=== PATIENT | female | born 1935 | race African-American/Black ===

== ENCOUNTER 2020-12-22 21:35 | Inpatient (IN) | payer OTHER ==
[~2020-12-22] VITALS: Ht 162.6 cm; Wt 66.8 kg
[2020-12-22] MEDS ORDERED: SODIUM CHLORIDE 0.9% 1,000 ML IV ONE (22:15)
[2020-12-22] MEDS ORDERED: SODIUM CHLORIDE 0.9% 1000ML BAG (SEPSIS BOLUS) IV ONE (22:45)
[2020-12-22] MEDS ORDERED: VANCOMYCIN 1 G PREMIX 200 ML IV ONE (22:45)
[2020-12-22] MEDS ORDERED: PIPERACILLIN/TAZ 3.375G PREMIX 50 ML IV ONE (22:45)
[2020-12-22 23:07] LABS: BASOPHILS % 0.7 % (0.0-2.0); EOSINOPHILS % 0.6 % (0.0-5.0); HEMATOCRIT. 36.1 % (36.0-48.0); HEMOGLOBIN. 11.6 g/dL (12.0-16.0); LYMPHOCYTES % 7.4 % (20.0-50.0); MEAN CORPUSCULAR HEMOGLOBIN 25.7 pg (28.0-32.0); MEAN CORPUSCULAR VOLUME 80.2 fL (81.0-99.0); NEUTROPHILS % 80.3 % (40.0-76.0); PLATELET 402 x1000/uL (130-400); RED CELL DISTRIBUTION WIDTH 15.4 % (11.6-14.6)
[2020-12-23] VITALS (12 sets, daily range): BP systolic 114–180; BP diastolic 66–97
[2020-12-23 00:02] LABS: CHLORIDE 105 mEq/L (98-107)
[2020-12-23] MEDS ORDERED: ACETAMINOPHEN 325MG TABLET PO ONE ×2 (04:00)
[2020-12-23] MEDS ORDERED: HYDROCODONE/ACETAMINOPHEN 5/325MG TABLET PO PRN ×2 (07:00)
[2020-12-23] MEDS ORDERED: ONDANSETRON HCL 4MG/2ML INJ IV PRN (09:30)
[2020-12-23] MEDS ORDERED: ENOXAPARIN 40MG/0.4ML SYR SUBCUT SCH (09:30)
[2020-12-23] MEDS ORDERED: MAGNESIUM/ALUMINUM HYDROXIDE/SIMETHICONE 30ML UDC PO PRN (09:30)
[2020-12-23] MEDS ORDERED: DEXTROSE 50% WATER 50ML SYRINGE IV PRN ×2 (09:30)
[2020-12-23] MEDS: ENOXAPARIN 30MG/0.3ML SYR SUBCUT SCH (10:00)
[2020-12-23] MEDS: INSULIN LISPRO 100 UNITS/ML SUBCUT SCH ×4 (11:21→19:38)
[2020-12-23] MEDS: BLOOD SUGAR DIAGNOSTIC STRIP TEST SCH ×3 (11:21→19:31)
[2020-12-23] MEDS: CLONIDINE 0.1MG TABLET PO PRN (11:23)
[2020-12-23] MEDS ORDERED: AZITHROMYCIN 500 MG TABLET PO SCH (11:45)
[2020-12-23] MEDS ORDERED: CEFTRIAXONE 1 G PREMIX 50 ML IV SCH (11:45)
[2020-12-23] MEDS ORDERED: DEXTROSE 5% IV SCH (12:15)
[2020-12-23] MEDS ORDERED: WATER IV SCH (12:15)
[2020-12-23] MEDS ORDERED: NALOXONE HCL 0.4MG/ML VIAL IV PRN (12:15)
[2020-12-23] MEDS: IPRATROPIUM/ALBUTEROL 0.5-3(2.5)MG/3ML NEB HHN SCH ×2 (12:37→20:18)
[2020-12-23 13:04] LABS: BG BASE EXCESS 2.4 mmol/L (-2.0-2.0); BG DEOXYHEMOGLOBIN 3.3 % (0.0-5.0); BG FRACTION INSPIRED OXYGEN 36; BG HCO3 ACT 28.1 mmol/L (22.0-26.0); BG METHEMOGLOBIN 0.2 % (0.0-1.5); BG OXYGEN SATURATION 96.7 % (92.0-98.5); BG OXYHEMOGLOBIN 95.5 % (94.0-97.0); BG PCO2 48.4 mmHg (35.0-45.0); BG PH 7.382 (7.350-7.450); BG PO2 91.8 mmHg (75.0-100.0); BG SAMPLE SITE RIGHT BRACHIAL; BG TOTAL HEMOGLOBIN 11.1 g/dL (12.0-18.0); BG VENT MODE NASAL CANNULA
[2020-12-23] MEDS: CEFTRIAXONE 1,000 MG in DEXTROSE 5% WATER 50 ML IV SCH (13:32)
[2020-12-23 14:50] LABS: INR 1.1; PARTIAL THROMBOPLASTIN TIME 24.4 sec (23.4-31.0); PROTHROMBIN TIME 11.4 sec (9.6-11.0)
[2020-12-23 15:24] LABS: CLARITY URINE CLEAR (CLEAR); COLOR URINE YELLOW (YELLOW); KETONES URINE NEGATIVE (NEGATIVE); LEUKOCYTE ESTERASE URINE NEGATIVE (NEGATIVE); NITRITE URINE NEGATIVE (NEGATIVE); OCCULT BLOOD URINE NEGATIVE (NEGATIVE); PH URINE 5.5 (4.5-8.0); PROTEIN URINE TRACE (NEGATIVE); SPECIFIC GRAVITY URINE 1.022 (1.005-1.030)
[2020-12-23 15:37] LABS: *COCAINE SCREEN URINE NEGATIVE (NEGATIVE); CANNABINOID URINE SCREEN PRESUMTIVE POSITIVE (NEGATIVE); METHADONE URINE SCREEN NEGATIVE (NEGATIVE); OPIATES URINE SCREEN PRESUMTIVE POSITIVE (NEGATIVE); PHENCYCLIDINE URINE SCREEN NEGATIVE (NEGATIVE)
[2020-12-23 15:38] LABS: *AMPHETAMINES SCREEN URINE NEGATIVE (NEGATIVE); *BARBITURATES SCREEN URINE NEGATIVE (NEGATIVE); *BENZODIAZEPINES SCREEN URINE NEGATIVE (NEGATIVE)
[2020-12-23] MEDS ORDERED: SODIUM BICARBONATE 4% (2.4MEQ) 5ML VIAL IV ONE (15:38)
[2020-12-23] MEDS ORDERED: ATOR10TA69 PO (16:06)
[2020-12-23] MEDS ORDERED: PANT40TA51 PO (16:06)
[2020-12-23] MEDS ORDERED: HYDR-4134 PO (16:06)
[2020-12-23] MEDS ORDERED: DONE5TAB33 PO (16:06)
[2020-12-23] MEDS ORDERED: RISP0.5T65 PO (16:06)
[2020-12-23] MEDS ORDERED: ATOR40TA70 PO (16:06)
[2020-12-23] MEDS ORDERED: METF-415 PO (16:06)
[2020-12-23] MEDS ORDERED: AMLO5TAB88 PO (16:06)
[2020-12-23] MEDS ORDERED: HYDR-3735 PO (16:06)
[2020-12-23] MEDS ORDERED: LISI20TA31 PO (16:06)
[2020-12-23] MEDS ORDERED: METF-414 PO (16:06)
[2020-12-23] MEDS ORDERED: METO25TA6 PO (16:08)
[2020-12-23] MEDS: DONEPEZIL HCL 5MG TABLET PO SCH (18:06)
[2020-12-23] MEDS: RISPERIDONE 0.5MG TABLET PO SCH (18:06)
[2020-12-23] MEDS: LORAZEPAM 1MG TABLET PO PRN (20:25)
[2020-12-24] VITALS (18 sets, daily range): BP systolic 106–134; BP diastolic 39–87
[2020-12-24] MEDS: IPRATROPIUM/ALBUTEROL 0.5-3(2.5)MG/3ML NEB HHN SCH ×3 (02:17→20:15)
[2020-12-24] MEDS: BLOOD SUGAR DIAGNOSTIC STRIP TEST SCH ×4 (06:16→21:00)
[2020-12-24] MEDS: OMEPRAZOLE 20MG CAPSULE EXTENDED RELEASE PO SCH (06:50)
[2020-12-24] MEDS: INSULIN LISPRO 100 UNITS/ML SUBCUT SCH ×4 (07:20→22:02)
[2020-12-24 07:44] LABS: CHLORIDE 107 mEq/L (98-107)
[2020-12-24 07:49] LABS: HEMATOCRIT. 33.4 % (36.0-48.0); HEMOGLOBIN. 10.6 g/dL (12.0-16.0); MEAN CORPUSCULAR VOLUME 81.9 fL (81.0-99.0); MEAN PLATELET VOLUME 8.8 fl (7.4-10.4); PLATELET 345 x1000/uL (130-400); RED BLOOD CELL COUNT 4.08 mill/uL (4.2-5.4); RED CELL DISTRIBUTION WIDTH 15.2 % (11.6-14.6)
[2020-12-24 07:54] LABS: LDL CHOLESTEROL 49 mg/dL (5-100)
[2020-12-24 07:57] LABS: T4 FREE 1.24 ng/dL (0.76-1.46)
[2020-12-24 07:59] LABS: HDL CHOLESTEROL 42 mg/dL (40-59)
[2020-12-24] MEDS: DONEPEZIL HCL 5MG TABLET PO SCH (09:00)
[2020-12-24] MEDS: RISPERIDONE 0.5MG TABLET PO SCH (09:00)
[2020-12-24 09:19] LABS: BG BASE EXCESS 2.1 mmol/L (-2.0-2.0); BG CARBOXYHEMOGLOBIN 0.3 % (0.5-1.5); BG DEOXYHEMOGLOBIN 23.6 % (0.0-5.0); BG HCO3 ACT 25.4 mmol/L (22.0-26.0); BG METHEMOGLOBIN 0.2 % (0.0-1.5); BG OXYGEN SATURATION 76.3 % (92.0-98.5); BG OXYHEMOGLOBIN 75.9 % (94.0-97.0); BG PCO2 34.8 mmHg (35.0-45.0); BG PH 7.481 (7.350-7.450); BG PO2 39.3 mmHg (75.0-100.0); BG SAMPLE SITE RIGHT RADIAL; BG TOTAL HEMOGLOBIN 10.7 g/dL (12.0-18.0); BG VENT MODE ROOM AIR
[2020-12-24] MEDS: AZITHROMYCIN 250 MG TABLET PO SCH (10:13)
[2020-12-24 10:55] LABS: PLATELET ESTIMATE NORMAL
[2020-12-24 11:14] LABS: BG BASE EXCESS 3.3 mmol/L (-2.0-2.0); BG CARBOXYHEMOGLOBIN 0.2 % (0.5-1.5); BG DEOXYHEMOGLOBIN 13.6 % (0.0-5.0); BG HCO3 ACT 27.8 mmol/L (22.0-26.0); BG METHEMOGLOBIN 0.2 % (0.0-1.5); BG OXYGEN SATURATION 86.3 % (92.0-98.5); BG PCO2 42.1 mmHg (35.0-45.0); BG PH 7.438 (7.350-7.450); BG SAMPLE SITE RIGHT RADIAL; BG TOTAL HEMOGLOBIN 10.4 g/dL (12.0-18.0); BG VENT MODE NASAL CANNULA
[2020-12-24] MEDS ORDERED: FUROSEMIDE 40MG/4ML VIAL IVP SCH (12:00)
[2020-12-24] MEDS: CEFTRIAXONE 1,000 MG in DEXTROSE 5% WATER 50 ML IV SCH (12:38)
[2020-12-24] MEDS: METHYLPREDNISOLONE SOD SUCC 40 MG/ML VIAL IV SCH ×2 (12:50→21:53)
[2020-12-24] MEDS ORDERED: IOHEXOL-350 100 ML BOTTLE ONE (14:29)
[2020-12-24] MEDS: FUROSEMIDE 40MG/4ML VIAL IVP SCH (18:58)
[2020-12-25] VITALS (12 sets, daily range): BP systolic 99–146; BP diastolic 62–92
[2020-12-25] MEDS: ACETAMINOPHEN 325MG TABLET PO PRN ×2 (05:43→13:43)
[2020-12-25] MEDS: METHYLPREDNISOLONE SOD SUCC 40 MG/ML VIAL IV SCH ×2 (06:16→17:32)
[2020-12-25] MEDS: OMEPRAZOLE 20MG CAPSULE EXTENDED RELEASE PO SCH (06:16)
[2020-12-25 06:22] LABS: HEMATOCRIT. 35.3 % (36.0-48.0); HEMOGLOBIN. 11.3 g/dL (12.0-16.0); MEAN CORPUSCULAR HEMOGLOBIN 26.1 pg (28.0-32.0); MEAN CORPUSCULAR VOLUME 81.3 fL (81.0-99.0); MEAN PLATELET VOLUME 8.8 fl (7.4-10.4); PLATELET 409 x1000/uL (130-400); RED BLOOD CELL COUNT 4.35 mill/uL (4.2-5.4)
[2020-12-25] MEDS: BLOOD SUGAR DIAGNOSTIC STRIP TEST SCH ×4 (06:50→21:32)
[2020-12-25] MEDS: INSULIN LISPRO 100 UNITS/ML SUBCUT SCH ×5 (08:09→21:35)
[2020-12-25] MEDS: DONEPEZIL HCL 5MG TABLET PO SCH (08:17)
[2020-12-25] MEDS: RISPERIDONE 0.5MG TABLET PO SCH (08:17)
[2020-12-25] MEDS: FUROSEMIDE 40MG/4ML VIAL IVP SCH ×2 (08:17→17:32)
[2020-12-25] MEDS: AZITHROMYCIN 250 MG TABLET PO SCH (08:17)
[2020-12-25] MEDS: ENOXAPARIN 30MG/0.3ML SYR SUBCUT SCH (08:18)
[2020-12-25] MEDS: IPRATROPIUM/ALBUTEROL 0.5-3(2.5)MG/3ML NEB HHN SCH ×3 (08:43→21:25)
[2020-12-25 09:42] LABS: CHLORIDE 100 mEq/L (98-107)
[2020-12-25 09:47] LABS: PHOSPHORUS 3.4 mg/dL (2.5-4.9)
[2020-12-25] MEDS ORDERED: DEXTROSE 50% WATER 50ML SYRINGE IV PRN (11:30)
[2020-12-25] MEDS ORDERED: BLOOD SUGAR DIAGNOSTIC STRIP TEST SCH (11:50)
[2020-12-25] MEDS ORDERED: LORAZEPAM 2MG/ML CPJ IV PRN (13:00)
[2020-12-25] MEDS ORDERED: INSULIN LISPRO 100 UNITS/ML SUBCUT NR (13:00)
[2020-12-25] MEDS ORDERED: MAGNESIUM 1 G PREMIX 100 ML IV SCH (13:00)
[2020-12-25 13:01] LABS: PLATELET ESTIMATE INCREASED
[2020-12-25] MEDS: LORAZEPAM 1MG TABLET PO PRN (13:59)
[2020-12-25] MEDS: CEFTRIAXONE 1,000 MG in DEXTROSE 5% WATER 50 ML IV SCH (14:00)
[2020-12-26] VITALS (12 sets, daily range): BP systolic 128–160; BP diastolic 67–97
[2020-12-26] MEDS: IPRATROPIUM/ALBUTEROL 0.5-3(2.5)MG/3ML NEB HHN SCH ×3 (01:24→20:23)
[2020-12-26] MEDS: OMEPRAZOLE 20MG CAPSULE EXTENDED RELEASE PO SCH (06:07)
[2020-12-26] MEDS: BLOOD SUGAR DIAGNOSTIC STRIP TEST SCH ×4 (06:49→21:20)
[2020-12-26] MEDS: METHYLPREDNISOLONE SOD SUCC 40 MG/ML VIAL IV SCH ×2 (08:25→16:54)
[2020-12-26] MEDS: DONEPEZIL HCL 5MG TABLET PO SCH (08:26)
[2020-12-26] MEDS: RISPERIDONE 0.5MG TABLET PO SCH (08:26)
[2020-12-26] MEDS: FUROSEMIDE 40MG/4ML VIAL IVP SCH ×2 (08:26→16:54)
[2020-12-26] MEDS: INSULIN LISPRO 100 UNITS/ML SUBCUT SCH ×4 (08:26→21:21)
[2020-12-26] MEDS: AZITHROMYCIN 250 MG TABLET PO SCH (08:26)
[2020-12-26] MEDS: ENOXAPARIN 30MG/0.3ML SYR SUBCUT SCH (08:27)
[2020-12-26 08:47] LABS: HEMATOCRIT. 33.9 % (36.0-48.0); HEMOGLOBIN. 10.8 g/dL (12.0-16.0); MEAN CORPUSCULAR HEMOGLOBIN 25.8 pg (28.0-32.0); MEAN CORPUSCULAR VOLUME 81.3 fL (81.0-99.0); MEAN PLATELET VOLUME 9.2 fl (7.4-10.4); PLATELET 405 x1000/uL (130-400); RED BLOOD CELL COUNT 4.17 mill/uL (4.2-5.4); RED CELL DISTRIBUTION WIDTH 15.1 % (11.6-14.6)
[2020-12-26 09:00] LABS: CHLORIDE 102 mEq/L (98-107)
[2020-12-26] MEDS: CEFTRIAXONE 1,000 MG in DEXTROSE 5% WATER 50 ML IV SCH (13:05)
[2020-12-26 14:07] LABS: PLATELET ESTIMATE SLIGHTLY INCREASED
[2020-12-26] MEDS: CLONIDINE 0.1MG TABLET PO PRN (16:54)
[2020-12-27 00:18] VITALS: BP 176/92
[2020-12-27] MEDS: CLONIDINE 0.1MG TABLET PO PRN (00:30)
[2020-12-27 02:16] VITALS: BP 150/49
[2020-12-27] MEDS: IPRATROPIUM/ALBUTEROL 0.5-3(2.5)MG/3ML NEB HHN SCH (02:29)
[2020-12-27] MEDS ORDERED: METF-415 PO (05:40)
[2020-12-27 05:41] VITALS: BP 142/80
[2020-12-27] MEDS ORDERED: RISP0.5T65 PO (05:42)
[2020-12-27] MEDS ORDERED: ATOR10TA69 PO (05:44)
[2020-12-27] MEDS ORDERED: AMLO5TAB88 PO (05:44)
[2020-12-27] MEDS ORDERED: DONE5TAB33 PO (05:45)
[2020-12-27] MEDS ORDERED: METO25TA6 PO (05:52)
[2020-12-27] MEDS: LORAZEPAM 1MG TABLET PO PRN (06:29)
[2020-12-27 06:46] VITALS: BP 142/80
[2020-12-27] MEDS ORDERED: FAMOTIDINE 20MG TABLET PO SCH (06:50)
[2020-12-27] MEDS ORDERED: METFORMIN HCL 850MG TABLET PO SCH (08:30)
[2020-12-27] MEDS ORDERED: METOPROLOL TARTRATE 25MG TABLET PO SCH (09:00)
[2020-12-27] MEDS ORDERED: AMLODIPINE 5MG TABLET PO SCH (09:00)
[2020-12-27] MEDS ORDERED: DONEPEZIL HCL 5MG TABLET PO SCH (09:00)
[2020-12-27] MEDS ORDERED: RISPERIDONE 0.5MG TABLET PO SCH (09:00)
[2020-12-27] MEDS ORDERED: ATORVASTATIN CALCIUM 10MG TABLET PO SCH (17:00)
== END 2020-12-27 07:30 | disposition home health service (06) | DRG 871 ==
LOC: ER 21:35 → MICUSO 23:30 → 3WST 12-23 12:02
PROVIDERS: ADMIT Internal Medicine; ATTEND Internal Medicine
PROC: 0W993ZZ Drainage of Right Pleural Cavity, Percutaneous Approach (ICD-10-PCS; principal; 2020-12-23)
PROC: 5A09357 Assistance with Respiratory Ventilation, Less than 24 Consecutive Hours, Continuous Positive Airway Pressure (ICD-10-PCS; 2020-12-24)
PROC: 5A09357 Assistance with Respiratory Ventilation, Less than 24 Consecutive Hours, Continuous Positive Airway Pressure (ICD-10-PCS; 2020-12-25)
DX: A41.9 Sepsis, unspecified organism (principal); J18.9 Pneumonia, unspecified organism; J96.21 Acute and chronic respiratory failure with hypoxia; I50.33 Acute on chronic diastolic (congestive) heart failure; J45.901 Unspecified asthma with (acute) exacerbation; E44.0 Moderate protein-calorie malnutrition; G93.40 Encephalopathy, unspecified; J91.8 Pleural effusion in other conditions classified elsewhere; I11.0 Hypertensive heart disease with heart failure; D72.829 Elevated white blood cell count, unspecified; E11.65 Type 2 diabetes mellitus with hyperglycemia; T38.0X5A Adverse effect of glucocorticoids and synthetic analogues, initial encounter; Y92.239 Unspecified place in hospital as the place of occurrence of the external cause; E83.42 Hypomagnesemia; Z20.822 Contact with and (suspected) exposure to COVID-19; F03.90 Unspecified dementia, unspecified severity, without behavioral disturbance, psychotic disturbance, mood disturbance, and anxiety; E78.5 Hyperlipidemia, unspecified; F17.210 Nicotine dependence, cigarettes, uncomplicated; D64.9 Anemia, unspecified; Z68.25 Body mass index [BMI] 25.0-25.9, adult
CPT/HCPCS: 32555; 36415; 36600; 71045; 71275; 80048; 80053; 80061; 80305; 81003; 82040; 82375; 82805; 82962; 83036; 83605; 83615; 83735; 83880; 84100; 84145; 84439; 84443; 84484; 85025; 87426; 88108; 88312; 93005; 93306; 93970; 94640; 94660; 97162; 99291; J0696; J1650; J1815; J1940; J2310; J2543; J2920; J3370; J3475; J3490; J7030; J7060; Q9967

== ENCOUNTER 2020-12-28 18:07 | Inpatient (IN) | payer OTHER ==
[~2020-12-28] VITALS: Ht 154.9 cm; Wt 63.5 kg
[~2020-12-28 18:07] MED LIST: AMLO5TAB88 PO; ATOR10TA69 PO; ATOR40TA70 PO; DONE5TAB33 PO; HYDR-3735 PO; HYDR-4134 PO; LISI20TA31 PO; METF-414 PO; METF-415 PO; METO25TA6 PO; PANT40TA51 PO; RISP0.5T65 PO
[2020-12-28 21:29] LABS: BASOPHILS % 0.3 % (0.0-2.0); EOSINOPHILS % 0.5 % (0.0-5.0); HEMATOCRIT. 35.5 % (36.0-48.0); HEMOGLOBIN. 11.2 g/dL (12.0-16.0); LYMPHOCYTES % 15.4 % (20.0-50.0); MEAN CORPUSCULAR HEMOGLOBIN 25.7 pg (28.0-32.0); MEAN PLATELET VOLUME 8.2 fl (7.4-10.4); MONOCYTES % 10.6 % (2.0-8.0); NEUTROPHILS % 73.2 % (40.0-76.0); PLATELET 446 x1000/uL (130-400); RED BLOOD CELL COUNT 4.38 mill/uL (4.2-5.4); RED CELL DISTRIBUTION WIDTH 14.9 % (11.6-14.6)
[2020-12-28 21:35] LABS: CHLORIDE 103 mEq/L (98-107)
[2020-12-29 03:15] LABS: CLARITY URINE CLEAR (CLEAR); COLOR URINE YELLOW (YELLOW); KETONES URINE NEGATIVE (NEGATIVE); LEUKOCYTE ESTERASE URINE NEGATIVE (NEGATIVE); NITRITE URINE NEGATIVE (NEGATIVE); OCCULT BLOOD URINE NEGATIVE (NEGATIVE); PH URINE 7.5 (4.5-8.0); PROTEIN URINE NEGATIVE (NEGATIVE); SPECIFIC GRAVITY URINE 1.011 (1.005-1.030)
[2020-12-29] MEDS ORDERED: DIPHENHYDRAMINE 50MG/ML VIAL IV PRN (08:30)
[2020-12-29] MEDS ORDERED: CLONIDINE 0.1MG TABLET PO PRN (08:30)
[2020-12-29] MEDS ORDERED: ENOXAPARIN 40MG/0.4ML SYR SUBCUT SCH (08:30)
[2020-12-29] MEDS ORDERED: DOCUSATE SODIUM 100MG CAPSULE PO PRN (08:30)
[2020-12-29] MEDS ORDERED: HYDRALAZINE 20MG/ML VIAL IV PRN (08:30)
[2020-12-29] MEDS ORDERED: HYDROCODONE/ACETAMINOPHEN 5/325MG TABLET PO PRN (08:30)
[2020-12-29] MEDS ORDERED: GUAIFENESIN 200MG/10ML SUGAR FREE UDC PO PRN (08:30)
[2020-12-29] MEDS ORDERED: ONDANSETRON HCL 4MG/2ML INJ IV PRN (08:30)
[2020-12-29] MEDS ORDERED: ACETAMINOPHEN 325MG TABLET PO PRN (08:30)
[2020-12-29] MEDS ORDERED: LORAZEPAM 2MG/ML CPJ IV PRN (08:30)
[2020-12-29] MEDS ORDERED: MORPHINE SULFATE 2 MG/ML CPJ (NOT FOR IM USE) IV PRN (08:30)
[2020-12-29] MEDS ORDERED: MAGNESIUM/ALUMINUM HYDROXIDE/SIMETHICONE 30ML UDC PO PRN (08:30)
[2020-12-29] MEDS ORDERED: IPRATROPIUM/ALBUTEROL 0.5-3(2.5)MG/3ML NEB HHN PRN (08:30)
[2020-12-29] MEDS ORDERED: DEXTROSE 50% WATER 50ML SYRINGE IV PRN (08:45)
[2020-12-29] MEDS ORDERED: NALOXONE HCL 0.4MG/ML VIAL IV PRN (08:45)
[2020-12-29 09:00] VITALS: BP 137/83
[2020-12-29 11:00] VITALS: BP 137/72
[2020-12-29] MEDS ORDERED: *PATIENT'S OWN MEDICATION STORAGE XX SCH (11:15)
[2020-12-29 11:18] VITALS: BP 137/72
[2020-12-29 12:00] VITALS: BP 130/77
[2020-12-29] MEDS ORDERED: INSULIN LISPRO 100 UNITS/ML SUBCUT SCH (12:00)
[2020-12-29] MEDS: BLOOD SUGAR DIAGNOSTIC STRIP TEST SCH ×3 (12:09→21:08)
[2020-12-29] MEDS: IPRATROPIUM/ALBUTEROL 0.5-3(2.5)MG/3ML NEB HHN SCH ×2 (14:01→18:00)
[2020-12-29] MEDS: SODIUM CHLORIDE 0.9% INJ 3ML FLUSH IVF SCH ×2 (14:28→21:09)
[2020-12-29] MEDS: PIPERACILLIN/TAZOBACTAM 3.375 G in DEXTROSE 5% WATER 50 ML IV SCH ×2 (14:28→21:08)
[2020-12-29 16:00] VITALS: BP 144/84
[2020-12-29 16:56] LABS: BG BASE EXCESS 6.5 mmol/L (-2.0-2.0); BG CARBOXYHEMOGLOBIN 0.3 % (0.5-1.5); BG DEOXYHEMOGLOBIN 7.9 % (0.0-5.0); BG FRACTION INSPIRED OXYGEN 28; BG METHEMOGLOBIN 0.3 % (0.0-1.5); BG OXYGEN SATURATION 92.1 % (92.0-98.5); BG OXYHEMOGLOBIN 91.5 % (94.0-97.0); BG PCO2 44.1 mmHg (35.0-45.0); BG PH 7.465 (7.350-7.450); BG PO2 61.8 mmHg (75.0-100.0); BG SAMPLE SITE RIGHT BRACHIAL; BG TOTAL HEMOGLOBIN 11.1 g/dL (12.0-18.0); BG VENT MODE NASAL CANNULA
[2020-12-29] MEDS ORDERED: FUROSEMIDE 40MG/4ML VIAL IVP SCH (17:45)
[2020-12-29] MEDS: METHYLPREDNISOLONE SOD SUCC 40 MG/ML VIAL IV SCH (18:31)
[2020-12-29] MEDS: INSULIN LISPRO 100 UNITS/ML SUBCUT SCH ×2 (18:31→21:09)
[2020-12-29 20:00] VITALS: BP 148/65
[2020-12-29 22:03] LABS: CREATINE KINASE 36 IU/L (26-192)
[2020-12-29 22:04] LABS: CREATINE KINASE MB FRACTION 1.5 ng/mL (0.5-3.6)
[2020-12-30] VITALS: BP 131/80
[2020-12-30] MEDS: PIPERACILLIN/TAZOBACTAM 3.375 G in DEXTROSE 5% WATER 50 ML IV SCH ×3 (05:42→23:08)
[2020-12-30] MEDS: SODIUM CHLORIDE 0.9% INJ 3ML FLUSH IVF SCH ×3 (05:42→23:08)
[2020-12-30] MEDS: BLOOD SUGAR DIAGNOSTIC STRIP TEST SCH ×4 (07:27→21:00)
[2020-12-30 08:00] VITALS: BP 148/75
[2020-12-30 08:41] LABS: HEMATOCRIT. 36.6 % (36.0-48.0); HEMOGLOBIN. 11.7 g/dL (12.0-16.0); MEAN CORPUSCULAR HEMOGLOBIN 25.8 pg (28.0-32.0); MEAN CORPUSCULAR VOLUME 80.3 fL (81.0-99.0); MEAN PLATELET VOLUME 8.6 fl (7.4-10.4); PLATELET 453 x1000/uL (130-400); RED BLOOD CELL COUNT 4.55 mill/uL (4.2-5.4); RED CELL DISTRIBUTION WIDTH 15.1 % (11.6-14.6)
[2020-12-30 09:14] LABS: CHLORIDE 98 mEq/L (98-107)
[2020-12-30] MEDS: IPRATROPIUM/ALBUTEROL 0.5-3(2.5)MG/3ML NEB HHN SCH ×4 (09:14→22:00)
[2020-12-30 09:26] LABS: CREATINE KINASE MB FRACTION < 1.0 ng/mL (0.5-3.6)
[2020-12-30 09:27] LABS: CREATINE KINASE 27 IU/L (26-192)
[2020-12-30] MEDS: METHYLPREDNISOLONE SOD SUCC 40 MG/ML VIAL IV SCH ×2 (09:53→17:00)
[2020-12-30] MEDS: INSULIN LISPRO 100 UNITS/ML SUBCUT SCH ×4 (09:53→21:00)
[2020-12-30] MEDS: FUROSEMIDE 40MG/4ML VIAL IVP SCH ×2 (10:11→17:15)
[2020-12-30] MEDS ORDERED: INSULIN GLARGINE UD 100 UNITS/ML SYR SUBCUT NR ×2 (11:30→14:30)
[2020-12-30 12:00] VITALS: BP 145/76
[2020-12-30 16:00] VITALS: BP 133/77
[2020-12-30] MEDS ORDERED: INSULIN LISPRO 100 UNITS/ML SUBCUT NR (16:10)
[2020-12-30 20:00] VITALS: BP 149/97
[2020-12-30] MEDS ORDERED: INSULIN GLARGINE UD 100 UNITS/ML SYR SUBCUT SCH (22:00)
[2020-12-30] MEDS: INSULIN GLARGINE UD 100 UNITS/ML SYR SUBCUT SCH (22:00)
[2020-12-31] VITALS: BP 143/63
[2020-12-31] MEDS: IPRATROPIUM/ALBUTEROL 0.5-3(2.5)MG/3ML NEB HHN SCH ×4 (03:36→20:35)
[2020-12-31 04:00] VITALS: BP 133/80
[2020-12-31] MEDS: PIPERACILLIN/TAZOBACTAM 3.375 G in DEXTROSE 5% WATER 50 ML IV SCH ×3 (06:29→21:43)
[2020-12-31] MEDS: FUROSEMIDE 40MG/4ML VIAL IVP SCH ×2 (06:29→17:29)
[2020-12-31] MEDS: SODIUM CHLORIDE 0.9% INJ 3ML FLUSH IVF SCH ×3 (06:29→21:44)
[2020-12-31] MEDS: BLOOD SUGAR DIAGNOSTIC STRIP TEST SCH ×4 (06:30→21:38)
[2020-12-31 07:20] LABS: BASOPHILS % 0.1 % (0.0-2.0); EOSINOPHILS % 0.5 % (0.0-5.0); HEMATOCRIT. 34.3 % (36.0-48.0); HEMOGLOBIN. 11.2 g/dL (12.0-16.0); LYMPHOCYTES % 14.1 % (20.0-50.0); MEAN CORPUSCULAR HEMOGLOBIN 25.8 pg (28.0-32.0); MEAN CORPUSCULAR VOLUME 79.3 fL (81.0-99.0); MEAN PLATELET VOLUME 8.4 fl (7.4-10.4); MONOCYTES % 6.1 % (2.0-8.0); NEUTROPHILS % 79.2 % (40.0-76.0); PLATELET 497 x1000/uL (130-400); RED BLOOD CELL COUNT 4.32 mill/uL (4.2-5.4); RED CELL DISTRIBUTION WIDTH 14.9 % (11.6-14.6)
[2020-12-31] MEDS: INSULIN LISPRO 100 UNITS/ML SUBCUT SCH ×4 (07:50→21:47)
[2020-12-31 07:52] LABS: CHLORIDE 99 mEq/L (98-107)
[2020-12-31 08:51] VITALS: BP 150/75
[2020-12-31] MEDS: METHYLPREDNISOLONE SOD SUCC 40 MG/ML VIAL IV SCH ×2 (09:09→17:29)
[2020-12-31] MEDS ORDERED: POTASSIUM CHLORIDE 20MEQ TABLET SR PO SCH (12:15)
[2020-12-31 12:17] VITALS: BP 146/78
[2020-12-31] MEDS: INSULIN GLARGINE UD 100 UNITS/ML SYR SUBCUT SCH ×2 (13:45→22:22)
[2020-12-31 14:21] LABS: PLATELET ESTIMATE INCREASED
[2020-12-31 16:16] VITALS: BP 168/90
[2020-12-31] MEDS ORDERED: ALPRAZOLAM 0.25 MG TABLET PO PRN (17:15)
[2020-12-31 20:00] VITALS: BP 152/95
[2021-01-01] VITALS (7 sets, daily range): BP systolic 127–194; BP diastolic 64–101
[2021-01-01] MEDS: IPRATROPIUM/ALBUTEROL 0.5-3(2.5)MG/3ML NEB HHN SCH ×4 (01:30→19:41)
[2021-01-01] MEDS: FUROSEMIDE 40MG/4ML VIAL IVP SCH ×2 (06:15→18:05)
[2021-01-01] MEDS: PIPERACILLIN/TAZOBACTAM 3.375 G in DEXTROSE 5% WATER 50 ML IV SCH ×3 (06:15→22:01)
[2021-01-01] MEDS: SODIUM CHLORIDE 0.9% INJ 3ML FLUSH IVF SCH ×3 (06:15→22:02)
[2021-01-01] MEDS: BLOOD SUGAR DIAGNOSTIC STRIP TEST SCH ×4 (06:28→21:00)
[2021-01-01 06:39] LABS: BASOPHILS % 0.1 % (0.0-2.0); HEMATOCRIT. 33.1 % (36.0-48.0); HEMOGLOBIN. 10.9 g/dL (12.0-16.0); MEAN CORPUSCULAR HEMOGLOBIN 26.1 pg (28.0-32.0); MEAN CORPUSCULAR VOLUME 79.7 fL (81.0-99.0); MEAN PLATELET VOLUME 8.5 fl (7.4-10.4); MONOCYTES % 6.4 % (2.0-8.0); NEUTROPHILS % 85.5 % (40.0-76.0); PLATELET 507 x1000/uL (130-400); RED BLOOD CELL COUNT 4.15 mill/uL (4.2-5.4); RED CELL DISTRIBUTION WIDTH 14.4 % (11.6-14.6)
[2021-01-01 07:22] LABS: CHLORIDE 95 mEq/L (98-107)
[2021-01-01] MEDS: METHYLPREDNISOLONE SOD SUCC 40 MG/ML VIAL IV SCH ×2 (09:00→17:00)
[2021-01-01] MEDS: POTASSIUM CHLORIDE 20MEQ TABLET SR PO SCH (09:00)
[2021-01-01] MEDS: INSULIN GLARGINE UD 100 UNITS/ML SYR SUBCUT SCH ×2 (09:33→22:00)
[2021-01-01] MEDS: INSULIN LISPRO 100 UNITS/ML SUBCUT SCH ×4 (09:34→21:59)
[2021-01-01] MEDS ORDERED: DOCUSATE SODIUM 100MG CAPSULE PO SCH (21:00)
[2021-01-02] VITALS (7 sets, daily range): BP systolic 106–156; BP diastolic 53–93
[2021-01-02] MEDS: IPRATROPIUM/ALBUTEROL 0.5-3(2.5)MG/3ML NEB HHN SCH ×4 (01:23→17:19)
[2021-01-02] MEDS: BLOOD SUGAR DIAGNOSTIC STRIP TEST SCH ×3 (06:17→17:35)
[2021-01-02] MEDS: FUROSEMIDE 40MG/4ML VIAL IVP SCH ×2 (06:17→18:01)
[2021-01-02] MEDS: PIPERACILLIN/TAZOBACTAM 3.375 G in DEXTROSE 5% WATER 50 ML IV SCH ×2 (06:17→14:00)
[2021-01-02] MEDS: SODIUM CHLORIDE 0.9% INJ 3ML FLUSH IVF SCH ×2 (06:18→14:00)
[2021-01-02 06:28] LABS: BASOPHILS % 0.1 % (0.0-2.0); EOSINOPHILS % 0.1 % (0.0-5.0); HEMATOCRIT. 35.5 % (36.0-48.0); HEMOGLOBIN. 11.5 g/dL (12.0-16.0); LYMPHOCYTES % 7.2 % (20.0-50.0); MEAN CORPUSCULAR HEMOGLOBIN 25.9 pg (28.0-32.0); MEAN CORPUSCULAR VOLUME 80.1 fL (81.0-99.0); MEAN PLATELET VOLUME 8.8 fl (7.4-10.4); NEUTROPHILS % 86.6 % (40.0-76.0); PLATELET 526 x1000/uL (130-400); RED BLOOD CELL COUNT 4.43 mill/uL (4.2-5.4); RED CELL DISTRIBUTION WIDTH 15.1 % (11.6-14.6)
[2021-01-02 06:31] LABS: INR 1.1; PROTHROMBIN TIME 11.8 sec (9.6-11.0)
[2021-01-02 06:41] LABS: CHLORIDE 94 mEq/L (98-107)
[2021-01-02] MEDS: INSULIN LISPRO 100 UNITS/ML SUBCUT SCH ×3 (09:51→18:02)
[2021-01-02] MEDS: METHYLPREDNISOLONE SOD SUCC 40 MG/ML VIAL IV SCH ×2 (09:52→18:01)
[2021-01-02] MEDS: POTASSIUM CHLORIDE 20MEQ TABLET SR PO SCH (09:52)
[2021-01-02] MEDS: INSULIN GLARGINE UD 100 UNITS/ML SYR SUBCUT SCH (10:16)
[2021-01-02 10:39] LABS: BG BASE EXCESS 6.3 mmol/L (-2.0-2.0); BG CARBOXYHEMOGLOBIN 0.5 % (0.5-1.5); BG DEOXYHEMOGLOBIN 10.9 % (0.0-5.0); BG FRACTION INSPIRED OXYGEN 21; BG HCO3 ACT 30.2 mmol/L (22.0-26.0); BG METHEMOGLOBIN 0.2 % (0.0-1.5); BG OXYHEMOGLOBIN 88.4 % (94.0-97.0); BG PCO2 40.7 mmHg (35.0-45.0); BG PH 7.488 (7.350-7.450); BG PO2 54.7 mmHg (75.0-100.0); BG SAMPLE SITE RIGHT BRACHIAL; BG TOTAL HEMOGLOBIN 12.6 g/dL (12.0-18.0); BG VENT MODE ROOM AIR
[2021-01-02] MEDS ORDERED: AMOX1TAB15 MT (11:43)
[2021-01-02] MEDS ORDERED: FLUT1AER INH (11:43)
[2021-01-02] MEDS ORDERED: ALBU90AE INH (11:43)
[2021-01-02] MEDS ORDERED: PRED10TA PO (11:43)
== END 2021-01-02 20:40 | disposition home or self-care (01) | DRG 193 ==
LOC: ER 18:07 → EDBEDREQ 12-29 01:15 → MICUSO 12-29 06:38 → 6WST 12-29 10:35
PROVIDERS: ADMIT Internal Medicine; ATTEND Internal Medicine
DX: J18.9 Pneumonia, unspecified organism (principal); J96.01 Acute respiratory failure with hypoxia; I50.33 Acute on chronic diastolic (congestive) heart failure; J44.1 Chronic obstructive pulmonary disease with (acute) exacerbation; E44.0 Moderate protein-calorie malnutrition; G93.40 Encephalopathy, unspecified; J44.0 Chronic obstructive pulmonary disease with (acute) lower respiratory infection; J45.901 Unspecified asthma with (acute) exacerbation; R59.0 Localized enlarged lymph nodes; D49.1 Neoplasm of unspecified behavior of respiratory system; I11.0 Hypertensive heart disease with heart failure; E11.65 Type 2 diabetes mellitus with hyperglycemia; D64.9 Anemia, unspecified; F17.210 Nicotine dependence, cigarettes, uncomplicated; T38.0X5A Adverse effect of glucocorticoids and synthetic analogues, initial encounter; Z20.822 Contact with and (suspected) exposure to COVID-19; Z86.73 Personal history of transient ischemic attack (TIA), and cerebral infarction without residual deficits; Z79.899 Other long term (current) drug therapy; Z87.01 Personal history of pneumonia (recurrent); Z71.6 Tobacco abuse counseling; Z68.26 Body mass index [BMI] 26.0-26.9, adult
CPT/HCPCS: 36415; 36600; 71045; 71250; 80048; 80053; 81003; 82140; 82375; 82550; 82553; 82805; 82962; 83036; 83880; 84145; 84443; 84484; 85025; 87426; 93005; 93970; 94640; 97162; 99285; C1893; J0360; J1815; J1940; J2060; J2405; J2543; J2920; J7040; J7060

== ENCOUNTER 2021-01-13 18:09 | Emergency (ER) | payer OTHER ==
[~2021-01-13] VITALS: Ht 165.1 cm; Wt 61.0 kg
[~2021-01-13 18:09] MED LIST changes: +ALBU90AE INH; +AMOX1TAB15 MT; -ATOR40TA70 PO; +FLUT1AER INH; -HYDR-3735 PO; -HYDR-4134 PO; -LISI20TA31 PO; -METF-414 PO; -PANT40TA51 PO; +PRED10TA PO
[2021-01-13 21:59] LABS: CHLORIDE 105 mEq/L (98-107)
[2021-01-13 22:00] LABS: HEMATOCRIT. 35.3 % (36.0-48.0); HEMOGLOBIN. 11.4 g/dL (12.0-16.0); MEAN CORPUSCULAR HEMOGLOBIN 26.4 pg (28.0-32.0); MEAN CORPUSCULAR VOLUME 81.5 fL (81.0-99.0); MEAN PLATELET VOLUME 9.5 fl (7.4-10.4); PLATELET 305 x1000/uL (130-400); RED BLOOD CELL COUNT 4.33 mill/uL (4.2-5.4); RED CELL DISTRIBUTION WIDTH 16.1 % (11.6-14.6)
[2021-01-13] MEDS ORDERED: SODIUM CHLORIDE 0.9% 500 ML IV ONE (22:45)
[2021-01-13 22:47] LABS: PLATELET ESTIMATE NORMAL
[2021-01-14 00:04] LABS: CLARITY URINE CLEAR (CLEAR); COLOR URINE YELLOW (YELLOW); KETONES URINE NEGATIVE (NEGATIVE); LEUKOCYTE ESTERASE URINE NEGATIVE (NEGATIVE); NITRITE URINE NEGATIVE (NEGATIVE); OCCULT BLOOD URINE NEGATIVE (NEGATIVE); PROTEIN URINE NEGATIVE (NEGATIVE); SPECIFIC GRAVITY URINE 1.024 (1.005-1.030); UROBILINOGEN URINE 0.2 E.U./dL (0.2-1.0)
[2021-01-14] MEDS ORDERED: METFORMIN HCL 850MG TABLET PO ONE (00:15)
[2021-01-14 06:00] VITALS: BP 155/71
== END 2021-01-14 07:42 | disposition home or self-care (01) ==
LOC: ER 18:09
DX: E11.65 Type 2 diabetes mellitus with hyperglycemia (principal); I10 Essential (primary) hypertension; E78.00 Pure hypercholesterolemia, unspecified; J45.909 Unspecified asthma, uncomplicated; E05.90 Thyrotoxicosis, unspecified without thyrotoxic crisis or storm; Z79.84 Long term (current) use of oral hypoglycemic drugs
CPT/HCPCS: 36415; 71045; 80053; 81003; 82962; 84484; 85025; 96360; 96361; 99285

== ENCOUNTER 2021-01-25 09:50 | Emergency (ER) | payer OTHER ==
[~2021-01-25] VITALS: Ht 162.6 cm; Wt 65.0 kg
[2021-01-25] MEDS ORDERED: SODIUM CHLORIDE 0.9% 1,000 ML IV ONE (10:15)
[2021-01-25] MEDS ORDERED: AMOX-424 MT (12:07)
[2021-01-25] MEDS ORDERED: AZIT250T12 MT (12:07)
[2021-01-25 12:08] VITALS: BP 126/99
== END 2021-01-25 11:51 | disposition left against medical advice (07) ==
LOC: ER 09:55
DX: R10.13 Epigastric pain (principal); J18.9 Pneumonia, unspecified organism; E11.9 Type 2 diabetes mellitus without complications; I10 Essential (primary) hypertension; Z79.84 Long term (current) use of oral hypoglycemic drugs
CPT/HCPCS: 71045; 99283; J7030

== ENCOUNTER 2021-03-04 04:55 | Inpatient (IN) | payer OTHER ==
[~2021-03-04] VITALS: Ht 160 cm; Wt 58.1 kg
[~2021-03-04 04:55] MED LIST changes: +AMOX-424 MT; +AZIT250T12 MT
[2021-03-04] MEDS ORDERED: IPRATROPIUM BROMIDE (0.02%) 0.5MG/2.5ML NEB HHN STA (05:20)
[2021-03-04] MEDS ORDERED: METHYLPREDNISOLONE SOD SUCC 125 MG/2 ML VIAL IV STA (05:20)
[2021-03-04] MEDS ORDERED: ALBUTEROL (0.083%) 2.5MG/3ML NEB HHN SCH (05:30)
[2021-03-04 06:33] LABS: EOSINOPHILS % 0.6 % (0.0-5.0); HEMATOCRIT. 38.1 % (36.0-48.0); HEMOGLOBIN. 11.6 g/dL (12.0-16.0); LYMPHOCYTES % 23.4 % (20.0-50.0); MEAN CORPUSCULAR VOLUME 82.1 fL (81.0-99.0); MEAN PLATELET VOLUME 8.6 fl (7.4-10.4); MONOCYTES % 12.2 % (2.0-8.0); NEUTROPHILS % 62.8 % (40.0-76.0); PLATELET 330 x1000/uL (130-400); RED BLOOD CELL COUNT 4.65 mill/uL (4.2-5.4); RED CELL DISTRIBUTION WIDTH 18.3 % (11.6-14.6)
[2021-03-04 06:38] LABS: CHLORIDE 114 mEq/L (98-107)
[2021-03-04] MEDS ORDERED: CEFTRIAXONE 1 G PREMIX 50 ML IV ONE (07:15)
[2021-03-04] MEDS ORDERED: AZITHROMYCIN 500MG/250ML 250 ML IV ONE (07:15)
[2021-03-04] MEDS ORDERED: GUAIFENESIN 200MG/10ML SUGAR FREE UDC PO PRN (11:15)
[2021-03-04] MEDS ORDERED: DIPHENHYDRAMINE 50MG/ML VIAL IV PRN (11:15)
[2021-03-04] MEDS ORDERED: ACETAMINOPHEN 325MG TABLET PO PRN (11:15)
[2021-03-04] MEDS ORDERED: DEXTROSE 50% WATER 50ML SYRINGE IV PRN (11:15)
[2021-03-04] MEDS ORDERED: IPRATROPIUM/ALBUTEROL 0.5-3(2.5)MG/3ML NEB NEB PRN (11:15)
[2021-03-04] MEDS ORDERED: ACETAMINOPHEN 650MG SUPP PR PRN (11:15)
[2021-03-04] MEDS ORDERED: DOCUSATE SODIUM 100MG CAPSULE PO PRN (11:15)
[2021-03-04] MEDS ORDERED: HYDROCODONE/ACETAMINOPHEN 5/325MG TABLET PO PRN (11:15)
[2021-03-04] MEDS ORDERED: NA PHOS,M-B/NA PHOS,DI-BA ENEMA 118ML PR PRN (11:15)
[2021-03-04] MEDS ORDERED: ONDANSETRON HCL 4MG/2ML INJ IV PRN (11:15)
[2021-03-04] MEDS ORDERED: MAGNESIUM/ALUMINUM HYDROXIDE/SIMETHICONE 30ML UDC PO PRN (11:15)
[2021-03-04 11:31] LABS: BG BASE EXCESS -0.3 mmol/L (-2.0-2.0); BG CARBOXYHEMOGLOBIN 0.4 % (0.5-1.5); BG HCO3 ACT 23.8 mmol/L (22.0-26.0); BG METHEMOGLOBIN 0.3 % (0.0-1.5); BG OXYGEN SATURATION 91.9 % (92.0-98.5); BG OXYHEMOGLOBIN 91.3 % (94.0-97.0); BG PCO2 37.2 mmHg (35.0-45.0); BG PH 7.424 (7.350-7.450); BG PO2 67.2 mmHg (75.0-100.0); BG SAMPLE SITE RIGHT RADIAL; BG TOTAL HEMOGLOBIN 11.9 g/dL (12.0-18.0); BG VENT MODE NASAL CANNULA
[2021-03-04 13:16] LABS: INR 1.2; PROTHROMBIN TIME 12.5 sec (9.6-11.0)
[2021-03-04] MEDS: BLOOD SUGAR DIAGNOSTIC STRIP TEST SCH ×3 (13:17→21:50)
[2021-03-04] MEDS: INSULIN LISPRO 100 UNITS/ML SUBCUT SCH ×3 (13:23→21:00)
[2021-03-04] MEDS: ENOXAPARIN 40MG/0.4ML SYR SUBCUT SCH (13:24)
[2021-03-04 14:15] VITALS: BP 153/90
[2021-03-04] MEDS ORDERED: NALOXONE HCL 0.4MG/ML VIAL IV PRN (14:45)
[2021-03-04 15:00] VITALS: BP 154/89
[2021-03-04 16:00] VITALS: BP 143/94
[2021-03-04 17:43] LABS: CREATINE KINASE 34 IU/L (26-192)
[2021-03-04 17:44] LABS: CREATINE KINASE MB FRACTION 1.2 ng/mL (0.5-3.6)
[2021-03-04] MEDS: METHYLPREDNISOLONE SOD SUCC 40 MG/ML VIAL IV SCH ×2 (18:08→21:50)
[2021-03-04 20:00] VITALS: BP 145/85
[2021-03-04] MEDS: FAMOTIDINE 20MG TABLET PO SCH (21:50)
[2021-03-05] VITALS: BP 122/89
[2021-03-05 02:17] LABS: CREATINE KINASE 29 IU/L (26-192)
[2021-03-05 02:18] LABS: CREATINE KINASE MB FRACTION < 1.0 ng/mL (0.5-3.6)
[2021-03-05 04:00] VITALS: BP 151/90
[2021-03-05] MEDS: METHYLPREDNISOLONE SOD SUCC 40 MG/ML VIAL IV SCH ×3 (05:25→21:05)
[2021-03-05] MEDS: BLOOD SUGAR DIAGNOSTIC STRIP TEST SCH ×4 (06:08→20:10)
[2021-03-05] MEDS: INSULIN LISPRO 100 UNITS/ML SUBCUT SCH ×4 (07:56→20:11)
[2021-03-05 08:00] VITALS: BP 153/87
[2021-03-05] MEDS ORDERED: CEFTRIAXONE 1 G PREMIX 50 ML IV SCH (08:00)
[2021-03-05] MEDS ORDERED: AZITHROMYCIN 500MG/250ML 250 ML IV SCH (08:00)
[2021-03-05 08:14] LABS: CHLORIDE 108 mEq/L (98-107)
[2021-03-05] MEDS: ENOXAPARIN 40MG/0.4ML SYR SUBCUT SCH (09:40)
[2021-03-05] MEDS: CEFTRIAXONE 1,000 MG in DEXTROSE 5% WATER 50 ML IV SCH (09:40)
[2021-03-05 10:28] LABS: HEMOGLOBIN. 11.8 g/dL (12.0-16.0); MEAN CORPUSCULAR HEMOGLOBIN 25.4 pg (28.0-32.0); MEAN CORPUSCULAR VOLUME 79.8 fL (81.0-99.0); MEAN PLATELET VOLUME 8.9 fl (7.4-10.4); PLATELET 363 x1000/uL (130-400); RED BLOOD CELL COUNT 4.63 mill/uL (4.2-5.4); RED CELL DISTRIBUTION WIDTH 17.8 % (11.6-14.6)
[2021-03-05 11:11] LABS: PLATELET ESTIMATE NORMAL
[2021-03-05 12:00] VITALS: BP 149/86
[2021-03-05] MEDS: AZITHROMYCIN 500MG in DEXTROSE 5% WATER 250ML IV SCH (12:31)
[2021-03-05 16:00] VITALS: BP 130/70
[2021-03-05] MEDS ORDERED: INSULIN GLARGINE UD 100 UNITS/ML SYR SUBCUT NR (16:30)
[2021-03-05 20:00] VITALS: BP 129/68
[2021-03-05] MEDS: FAMOTIDINE 20MG TABLET PO SCH (20:10)
[2021-03-05] MEDS: INSULIN GLARGINE UD 100 UNITS/ML SYR SUBCUT SCH (22:25)
[2021-03-06] VITALS: BP 187/91
[2021-03-06] MEDS: LORAZEPAM 0.5MG TABLET PO PRN ×2 (00:09→09:32)
[2021-03-06 04:00] VITALS: BP 139/78
[2021-03-06] MEDS: METHYLPREDNISOLONE SOD SUCC 40 MG/ML VIAL IV SCH ×3 (06:08→21:38)
[2021-03-06] MEDS: BLOOD SUGAR DIAGNOSTIC STRIP TEST SCH ×4 (06:08→21:38)
[2021-03-06] MEDS: INSULIN LISPRO 100 UNITS/ML SUBCUT SCH ×4 (06:15→21:00)
[2021-03-06 07:24] LABS: BASOPHILS % 0.3 % (0.0-2.0); EOSINOPHILS % 0.1 % (0.0-5.0); HEMATOCRIT. 34.4 % (36.0-48.0); LYMPHOCYTES % 10.5 % (20.0-50.0); MEAN CORPUSCULAR HEMOGLOBIN 25.4 pg (28.0-32.0); MEAN CORPUSCULAR VOLUME 79.1 fL (81.0-99.0); MONOCYTES % 7.8 % (2.0-8.0); NEUTROPHILS % 81.3 % (40.0-76.0); PLATELET 369 x1000/uL (130-400); RED BLOOD CELL COUNT 4.35 mill/uL (4.2-5.4); RED CELL DISTRIBUTION WIDTH 17.6 % (11.6-14.6)
[2021-03-06 07:35] LABS: CHLORIDE 111 mEq/L (98-107)
[2021-03-06 08:00] VITALS: BP 140/80
[2021-03-06] MEDS: AZITHROMYCIN 500MG in DEXTROSE 5% WATER 250ML IV SCH (09:33)
[2021-03-06] MEDS: CEFTRIAXONE 1,000 MG in DEXTROSE 5% WATER 50 ML IV SCH (09:33)
[2021-03-06] MEDS: ENOXAPARIN 40MG/0.4ML SYR SUBCUT SCH (09:34)
[2021-03-06] MEDS: INSULIN GLARGINE UD 100 UNITS/ML SYR SUBCUT SCH ×2 (10:15→21:39)
[2021-03-06 12:00] VITALS: BP 137/75
[2021-03-06 20:00] VITALS: BP 185/95
[2021-03-06] MEDS: CLONIDINE 0.1MG TABLET PO PRN (20:34)
[2021-03-06] MEDS: FAMOTIDINE 20MG TABLET PO SCH (21:38)
[2021-03-07] VITALS: BP 161/82
[2021-03-07] MEDS: IPRATROPIUM/ALBUTEROL 0.5-3(2.5)MG/3ML NEB NEB SCH ×4 (01:54→20:06)
[2021-03-07 04:00] VITALS: BP 12/63
[2021-03-07] MEDS: METHYLPREDNISOLONE SOD SUCC 40 MG/ML VIAL IV SCH ×3 (05:21→22:33)
[2021-03-07] MEDS: BLOOD SUGAR DIAGNOSTIC STRIP TEST SCH ×4 (05:21→21:00)
[2021-03-07 07:02] LABS: CHLORIDE 109 mEq/L (98-107)
[2021-03-07 07:09] LABS: BASOPHILS % 0.1 % (0.0-2.0); EOSINOPHILS % 0.1 % (0.0-5.0); HEMATOCRIT. 34.9 % (36.0-48.0); HEMOGLOBIN. 11.2 g/dL (12.0-16.0); LYMPHOCYTES % 8.9 % (20.0-50.0); MEAN CORPUSCULAR HEMOGLOBIN 25.8 pg (28.0-32.0); MEAN CORPUSCULAR VOLUME 80.2 fL (81.0-99.0); MEAN PLATELET VOLUME 8.8 fl (7.4-10.4); MONOCYTES % 3.3 % (2.0-8.0); NEUTROPHILS % 87.6 % (40.0-76.0); PLATELET 352 x1000/uL (130-400); RED BLOOD CELL COUNT 4.35 mill/uL (4.2-5.4); RED CELL DISTRIBUTION WIDTH 17.7 % (11.6-14.6)
[2021-03-07] MEDS: INSULIN LISPRO 100 UNITS/ML SUBCUT SCH ×4 (07:15→22:37)
[2021-03-07 08:00] VITALS: BP 149/78
[2021-03-07] MEDS: CEFTRIAXONE 1,000 MG in DEXTROSE 5% WATER 50 ML IV SCH (09:10)
[2021-03-07] MEDS: AZITHROMYCIN 500MG in DEXTROSE 5% WATER 250ML IV SCH (10:36)
[2021-03-07] MEDS: ENOXAPARIN 40MG/0.4ML SYR SUBCUT SCH (10:38)
[2021-03-07 12:00] VITALS: BP 163/87
[2021-03-07] MEDS: INSULIN GLARGINE UD 100 UNITS/ML SYR SUBCUT SCH ×2 (13:06→22:39)
[2021-03-07] MEDS ORDERED: IOHEXOL-300 100 ML BOTTLE ONE (13:20)
[2021-03-07] MEDS: CLONIDINE 0.1MG TABLET PO PRN (13:49)
[2021-03-07] MEDS ORDERED: SODIUM CHLORIDE 0.45% 1,000 ML IV SCH (15:00)
[2021-03-07 16:00] VITALS: BP 167/90
[2021-03-07 20:00] VITALS: BP 157/84
[2021-03-07] MEDS ORDERED: IOHEXOL-350 100 ML BOTTLE ONE (21:26)
[2021-03-07] MEDS: ENOXAPARIN 60MG/0.6ML SYR SUBCUT SCH (22:32)
[2021-03-07] MEDS: FAMOTIDINE 20MG TABLET PO SCH (22:33)
[2021-03-08] VITALS: BP 130/72
[2021-03-08] MEDS: IPRATROPIUM/ALBUTEROL 0.5-3(2.5)MG/3ML NEB NEB SCH ×3 (01:58→11:57)
[2021-03-08 04:00] VITALS: BP 144/75
[2021-03-08] MEDS: METHYLPREDNISOLONE SOD SUCC 40 MG/ML VIAL IV SCH ×2 (06:38→13:01)
[2021-03-08] MEDS: BLOOD SUGAR DIAGNOSTIC STRIP TEST SCH ×2 (06:45→11:45)
[2021-03-08 08:00] VITALS: BP 152/84
[2021-03-08] MEDS: ENOXAPARIN 60MG/0.6ML SYR SUBCUT SCH (08:53)
[2021-03-08] MEDS: CEFTRIAXONE 1,000 MG in DEXTROSE 5% WATER 50 ML IV SCH (08:57)
[2021-03-08] MEDS: INSULIN LISPRO 100 UNITS/ML SUBCUT SCH ×2 (08:58→13:06)
[2021-03-08] MEDS ORDERED: AZITHROMYCIN 500 MG TABLET PO SCH (09:00)
[2021-03-08 10:47] LABS: HEMATOCRIT. 38.3 % (36.0-48.0); HEMOGLOBIN. 12.3 g/dL (12.0-16.0); MEAN CORPUSCULAR HEMOGLOBIN 25.7 pg (28.0-32.0); MEAN CORPUSCULAR VOLUME 80.3 fL (81.0-99.0); MEAN PLATELET VOLUME 9.5 fl (7.4-10.4); PLATELET 352 x1000/uL (130-400); RED BLOOD CELL COUNT 4.77 mill/uL (4.2-5.4); RED CELL DISTRIBUTION WIDTH 17.6 % (11.6-14.6)
[2021-03-08 10:50] LABS: CHLORIDE 105 mEq/L (98-107)
[2021-03-08 12:00] VITALS: BP 179/87
[2021-03-08] MEDS: INSULIN GLARGINE UD 100 UNITS/ML SYR SUBCUT SCH (13:07)
[2021-03-08] MEDS: CLONIDINE 0.1MG TABLET PO PRN (13:08)
[2021-03-08 15:32] VITALS: BP 158/85
[2021-03-09 09:37] LABS: PLATELET ESTIMATE NORMAL
== END 2021-03-08 16:48 | disposition home or self-care (01) | DRG 190 ==
LOC: ER 04:55 → 5WST 09:17 → EDBEDREQ 09:20 → EDBEDREQTM 09:20 → ENRESERV 12:06 → 5WST 14:35
PROVIDERS: ADMIT Internal Medicine; ATTEND Internal Medicine
DX: J44.1 Chronic obstructive pulmonary disease with (acute) exacerbation (principal); J18.9 Pneumonia, unspecified organism; G93.40 Encephalopathy, unspecified; I50.32 Chronic diastolic (congestive) heart failure; I82.403 Acute embolism and thrombosis of unspecified deep veins of lower extremity, bilateral; J44.0 Chronic obstructive pulmonary disease with (acute) lower respiratory infection; Z20.822 Contact with and (suspected) exposure to COVID-19; C80.1 Malignant (primary) neoplasm, unspecified; I11.0 Hypertensive heart disease with heart failure; E11.9 Type 2 diabetes mellitus without complications; D64.9 Anemia, unspecified; Z91.14 Patient's other noncompliance with medication regimen; Z86.718 Personal history of other venous thrombosis and embolism; Z99.81 Dependence on supplemental oxygen
CPT/HCPCS: 36415; 36600; 71045; 71250; 71275; 74178; 76604; 80048; 80053; 82375; 82378; 82550; 82553; 82805; 82962; 83605; 83880; 84443; 84484; 85025; 87426; 93005; 93306; 93970; 94640; 99291; C9803; J0456; J0696; J1200; J1650; J1815; J2405; J2920; J2930; J7060; Q9967; U0003; U0005